=== PATIENT | male | born 1975 | race Two or more races ===

== ENCOUNTER 2021-03-31 17:22 | Emergency (ER) | payer SELFPAY ==
[~2021-03-31] VITALS: Ht 170.2 cm; Wt 65.8 kg
[2021-03-31 17:32] VITALS: BP 134/65
--- NOTE | 2021-03-31 17:45 | NUR ---
[id number], from street, etoh, running on the street, denies drugs or SI. On room air, breathing evenly and unlabored. Ambulatory with steady gait.
--- NOTE | 2021-03-31 18:00 | NUR ---
Patient given written and verbal discharge instructions. Patient verbalizes understanding of instructions. Patient is ambulatory with steady gait. Refuses offer of detention placement. Patient given list of available shelters in surrounding area.
== END 2021-03-31 18:02 | disposition home or self-care (01) ==
LOC: ER 17:25
DX: F10.129 Alcohol abuse with intoxication, unspecified (principal); Y90.9 Presence of alcohol in blood, level not specified